=== PATIENT | female | born 1990 | race Caucasian/White ===

== ENCOUNTER 2018-03-20 22:53 | Outpatient (CLI) | payer OTHER ==
[2018-03-20] MEDS ORDERED: PEPCID20 MG PO (23:02)
[2018-03-20] MEDS ORDERED: PRENATAL TABLE1 EAC2 PO (23:02)
== END 2018-03-21 09:07 | disposition home or self-care (01) ==
LOC: OBS/DEL 22:53
DX: O42.013 Preterm premature rupture of membranes, onset of labor within 24 hours of rupture, third trimester (principal); Z34.83 Encounter for supervision of other normal pregnancy, third trimester

== ENCOUNTER 2018-03-26 21:50 | Inpatient (IN) | payer OTHER ==
[~2018-03-26] VITALS: Ht 154.9 cm; Wt 2.7 kg
[~2018-03-26 21:50] MED LIST: PEPCID20 MG PO; PRENATAL TABLE1 EAC2 PO
[2018-04-04] MEDS ORDERED: IBUPROFEN800 MG PO (09:45)
[2018-04-04] MEDS ORDERED: COLACE100 MG PO (09:45)
[2018-04-04] MEDS ORDERED: CODE1TAB37 PO (09:45)
== END 2018-04-04 10:21 | DRG 766 ==
LOC: OB/GYN 21:50 → LDR 21:50 → OB/GYN 03-27 07:51 → EDUNIT# 03-30 13:30 → OB/GYN 04-04 10:21
PROVIDERS: Obstetrics & Gynecology
PROC: 0UL70ZZ Occlusion of Bilateral Fallopian Tubes, Open Approach (ICD-10-PCS; 2018-04-01)
PROC: 4A1HXCZ Monitoring of Products of Conception, Cardiac Rate, External Approach (ICD-10-PCS; 2018-04-01)
PROC: 10D00Z1 Extraction of Products of Conception, Low, Open Approach (ICD-10-PCS; principal; 2018-04-01 11:00)
DX: O14.04 Mild to moderate pre-eclampsia, complicating childbirth (principal); Z3A.37 37 weeks gestation of pregnancy; Z37.0 Single live birth; Z30.2 Encounter for sterilization